=== PATIENT | female | born 1945 | race Caucasian/White ===

== ENCOUNTER 2020-02-10 07:58 | Outpatient (REF) | payer MEDICARE, OTHER, SELFPAY ==
--- NOTE | 2020-02-10 08:06 | MM_ITS ---
EXAMINATION: MM SCREENING DIGITAL BREAST TOMOSYNTHESIS, BILATERAL CLINICAL INFORMATION: Screening. Asymptomatic. The lifetime risk of breast cancer based on the Tyrer-Cuzick Model is 7%. COMPARISON: Mammography: 07/31/2018, 07/06/2017 TECHNIQUE: Digital breast tomosynthesis is performed in both the craniocaudal and mediolateral oblique views along with computer-aided detection (CAD). Synthesized 2D images are generated from the tomosynthesis. FINDINGS: There are scattered areas of fibroglandular density (ACR BI-RADS breast composition Category b). There are no significant masses, abnormal calcifications, or other abnormalities. The axilla and skin contours are unremarkable. MM/MM tomosynthesis screening BI IMPRESSION: No mammographic evidence of malignancy. ASSESSMENT: BI-RADS 1: Negative RECOMMENDATION: Routine annual mammography screening. This patient's information was entered into a reminder system with a target due date for their next mammogram.
== END 2020-02-10 07:59 | disposition home or self-care (01) ==
LOC: HO.MAMMO 07:58
PROVIDERS: PCP Physician Assistant; Visit Provider Physician Assistant
DX: Z12.31 Encounter for screening mammogram for malignant neoplasm of breast (principal)
CPT/HCPCS: 77063; 77067

== ENCOUNTER 2020-06-08 08:19 | Outpatient (REF) | payer MEDICARE, OTHER, SELFPAY ==
[2020-06-08 08:59] LABS: Hematocrit 41.7 % (37-47); Hemoglobin 13.9 g/dl (12.0-16.0); Mean Corpuscular HGB Conc 33.3 g/dl (31.0-35.0); Mean Corpuscular Hemoglobin 31.3 pg (27.0-33.0); Mean Corpuscular Volume 93.9 fL (80-98); Mean Platelet Volume 11.1 fL (9.4-12.3); Platelet Count 201 X10*3/uL (160-400); Red Blood Count 4.44 X10*6/uL (4.20-5.50); Red Cell Distribution Width 12.6 % (11.0-16.0); White Blood Count 2.9 X10*3/uL (4.8-10.8)
[2020-06-08 09:25] LABS: Alanine Aminotransferase 21 U/L (0-31); Albumin Level 4.3 g/dL (3.5-5.0); Alkaline Phosphatase 65 U/L (39-117); Anion Gap 12 (12-20); Aspartate Amino Transferase 26 U/L (5-31); Bilirubin Total 0.3 mg/dL (0.0-1.0); Blood Urea Nitrogen 7 mg/dL (9-16); Calcium 9.3 mg/dL (8.4-10.2); Carbon Dioxide 29 mmol/L (22-29); Chloride 107 mmol/L (96-108); Cholesterol 200 mg/dL; Estimated Glomerular Filt Rate > 60; Glucose Fasting 90 mg/dL (60-99); HDL Cholesterol 75 mg/dL; LDL Cholesterol Calculated 108 mg/dl; Potassium 4.9 mmol/L (3.3-5.1); Sodium 143 mmol/L (135-145); Total Protein 7.1 g/dL (6.5-8.0); Triglycerides 89 mg/dL
[2020-06-08 09:36] LABS: Glucose Urine UA NEG (NEG); Leukocyte Esterase Urine NEG (NEG); Nitrite Urine NEG (NEG); PH 6.5 (5.0-8.0); Urine Blood NEG (NEG); Urine Ketones NEG (NEG); Urine Protein 1+ MG/DL (NEG-TRACE)
[2020-06-08 09:41] LABS: Appearance Urine CLEAR; Color Urine YELLOW
[2020-06-08 09:46] LABS: TSH reflex Free T4 3.39 uIU/mL (0.32-4.0)
[2020-06-08 09:49] LABS: HBsAGNum1 0.16 S/CO (0.00-0.99); Hepatitis B Surface Antigen Negative (Negative)
[2020-06-08 09:53] LABS: HBS Num1 0.03 mIU/mL (0-7.99); HBc Num1 0.03 S/CO (0.00-0.79); Hepatitis B Core Antibody Nonreactive (Nonreactive); ~HepC Num1 0.07 S/CO (0.00-0.79); ~Hepatitis B Surface Antibody NONREACTIVE (Nonreactive); ~Hepatitis C Antibody Nonreactive (Nonreactive)
[2020-06-08 10:02] LABS: Bacteria Urine TRACE /LPF; Mucus Urine 1+ /LPF; RBC Urine 0-2 /HPF (0); Squamous Epithelial Cell Urine TRACE /LPF; WBC Urine 0-2 /HPF (0-4)
== END 2020-06-08 08:20 | disposition home or self-care (01) ==
LOC: HO.LAB 08:19
PROVIDERS: Visit Provider Physician Assistant
DX: Z11.3 Encounter for screening for infections with a predominantly sexual mode of transmission (principal); Z13.220 Encounter for screening for lipoid disorders; R42 Dizziness and giddiness; I10 Essential (primary) hypertension; R82.998 Other abnormal findings in urine; R30.0 Dysuria; E03.9 Hypothyroidism, unspecified
CPT/HCPCS: 36415; 80053; 80061; 81001; 84443; 85027; 86704; 86706; 86803; 87340

== ENCOUNTER 2021-03-10 07:25 | Outpatient (REF) | payer MEDICARE, OTHER, SELFPAY ==
--- NOTE | ~2021-03-10 | MM_ITS ---
EXAMINATION: MM SCREENING DIGITAL BREAST TOMOSYNTHESIS, BILATERAL CLINICAL INFORMATION: Screening. Asymptomatic. The lifetime risk of breast cancer based on the Tyrer-Cuzick Model is 6.2%. COMPARISON: Mammography: February 10, 2020 and studies dating back to January 20, 2014 TECHNIQUE: Digital breast tomosynthesis is performed in both the craniocaudal and mediolateral oblique views along with computer-aided detection (CAD). Synthesized 2D images are generated from the tomosynthesis. FINDINGS: There are scattered areas of fibroglandular density (ACR BI-RADS breast composition Category b). There are no significant masses, abnormal calcifications, or other abnormalities. MM/MM tomosynthesis screening BI IMPRESSION: There are no significant changes from prior study. ASSESSMENT: BI-RADS 1: Negative RECOMMENDATION: Routine annual mammography screening. This patient's information was entered into a reminder system with a target due date for their next mammogram.
== END 2021-03-10 07:26 | disposition home or self-care (01) ==
LOC: HO.MAMMO 07:25
PROVIDERS: PCP Physician Assistant; Visit Provider Physician Assistant
DX: Z12.31 Encounter for screening mammogram for malignant neoplasm of breast (principal)
CPT/HCPCS: 77063; 77067

== ENCOUNTER 2021-03-23 07:51 | Outpatient (REF) | payer MEDICARE, OTHER, SELFPAY ==
[2021-03-23 08:59] LABS: Hematocrit 42.7 % (37.0-47.0); Hemoglobin 14.1 g/dl (12.0-16.0); Mean Corpuscular Hemoglobin 31.1 pg (27.0-33.0); Mean Corpuscular Volume 94.1 fL (80.0-98.0); Mean Platelet Volume 11.6 fL (9.4-12.3); Platelet Count 189 X10*3/uL (160-400); Red Blood Count 4.54 X10*6/uL (4.20-5.50); Red Cell Distribution Width 12.3 % (11.0-16.0); White Blood Count 3.1 X10*3/uL (4.8-10.8)
[2021-03-23 09:07] LABS: Appearance Urine CLEAR; Color Urine YELLOW; Glucose Urine UA NEG (NEG); Leukocyte Esterase Urine TRACE (NEG); Nitrite Urine NEG (NEG); PH 6.5 (5.0-8.0); UACC Culture Trigger YES; Urine Blood NEG (NEG); Urine Ketones NEG (NEG); Urine Protein NEG (NEG-TRACE)
[2021-03-23 09:16] LABS: Bacteria Urine 1+ /LPF; RBC Urine 0-2 /HPF (0); Squamous Epithelial Cell Urine 1+ /LPF
[2021-03-23 09:17] LABS: Oval Fat Bodies Urine NOTED
[2021-03-23 09:40] LABS: Anion Gap 12 (12-20); Blood Urea Nitrogen 14 mg/dL (9-16); Calcium 9.8 mg/dL (8.4-10.2); Carbon Dioxide 27 mmol/L (22-29); Chloride 108 mmol/L (96-108); Estimated Glomerular Filt Rate > 60; Glucose Random 89 mg/dL (60-115); Potassium 5.3 mmol/L (3.3-5.1); Sodium 142 mmol/L (135-145)
== END 2021-03-23 07:52 | disposition home or self-care (01) ==
LOC: HO.LAB 07:51
PROVIDERS: PCP Physician Assistant; Visit Provider Physician Assistant
DX: R30.0 Dysuria (principal); R42 Dizziness and giddiness; R82.998 Other abnormal findings in urine; I10 Essential (primary) hypertension; E03.9 Hypothyroidism, unspecified; Z13.220 Encounter for screening for lipoid disorders; Z13.1 Encounter for screening for diabetes mellitus
CPT/HCPCS: 36415; 80048; 81001; 85027; 87086

== ENCOUNTER 2021-07-27 08:50 | Outpatient (REF) | payer MEDICARE, OTHER, SELFPAY ==
[2021-07-27 10:21] LABS: Alanine Aminotransferase 16 U/L (0-31); Albumin Level 4.2 g/dL (3.5-5.0); Alkaline Phosphatase 58 U/L (39-117); Anion Gap 14 (12-20); Aspartate Amino Transferase 22 U/L (5-31); Bilirubin Total 0.5 mg/dL (0.0-1.0); Blood Urea Nitrogen 15 mg/dL (9-16); Calcium 9.5 mg/dL (8.4-10.2); Carbon Dioxide 27 mmol/L (22-29); Chloride 105 mmol/L (96-108); Cholesterol 194 mg/dL; Estimated Glomerular Filt Rate > 60; Glucose Fasting 84 mg/dL (60-99); HDL Cholesterol 71 mg/dL; LDL Cholesterol Calculated 109 mg/dl; Potassium 4.5 mmol/L (3.3-5.1); Sodium 141 mmol/L (135-145); Total Protein 6.9 g/dL (6.5-8.0); Triglycerides 74 mg/dL
[2021-07-27 10:32] LABS: TSH reflex Free T4 1.78 uIU/mL (0.32-4.0)
== END 2021-07-27 08:51 | disposition home or self-care (01) ==
LOC: HO.LAB 08:50
PROVIDERS: PCP Physician Assistant; Visit Provider Physician Assistant
DX: E03.9 Hypothyroidism, unspecified (principal)
CPT/HCPCS: 36415; 80053; 80061; 84443

== ENCOUNTER 2021-08-31 08:48 | Outpatient (REF) | payer MEDICARE, OTHER, SELFPAY ==
--- NOTE | ~2021-08-31 | MM_ITS ---
EXAMINATION: BONE DENSITOMETRY CLINICAL INDICATION: Menopause. COMPARISON: None (current study represents initial baseline exam). TECHNIQUE: Using a [employer] DXA System (software version: 13.1) manufactured by [employer], dual-energy x-ray absorptiometry was performed of the lumbar spine and left hip. The images are of good technical quality. Summary results are attached. FINDINGS: AP SPINE L1-L4: BMD 1.024 g/cm2, Z-score 0.5, T-score -1.3, osteopenia. LEFT FEMUR, NECK: BMD 0.901 g/cm2, Z-score 0.9, T-score -1.0, normal. LEFT FEMUR, TOTAL: BMD 0.974 g/cm2, Z-score 1.4, T-score -0.3, normal. IDENTIFIED RISK FACTORS: Menopause, low calcium intake, hyperthyroid, family history (parent hip fracture), secondary osteoporosis. HISTORY OF FRACTURE: None listed. MEDICATIONS: Vitamin D. MM/XR DEXA axial skeleton IMPRESSION: 1. DIAGNOSIS: Osteopenia based on the lowest T-score value of -1.3 in the lumbar spine applying World Health Organization criteria. 2. 10-YEAR FRACTURE RISK PREDICTION, FRAX: Major osteoporotic fracture (clinical spine, forearm, hip or shoulder) 13.4%. Hip fracture 4.6%. 3. Treatment Recommendations: NOF guidelines recommend consideration for treatment in postmenopausal women and men age 50 and older presenting with the following: -A hip or vertebral (clinical or morphometric) fracture. -T-score less than or equal to -2.5 at the femoral neck or spine after appropriate evaluation to exclude secondary causes. -Low bone mass at the hip or spine and a 10-year fracture probability by FRAX of greater than or equal to 3% for hip fracture or greater than or equal to 20% for major osteoporotic fracture based on the [place] adapted WHO algorithm. 4. Other Recommendations: All treatment decisions require clinical judgment and consideration of individual patient factors, including patient preferences, comorbidities, previous drug use, risk factors not captured in the FRAX model (e.g. frailty, falls, vitamin D deficiency, increased bone turnover, interval significant decline in bone density) and possible under or overestimation of fracture risk by FRAX. Additional medical evaluation for secondary cause of low bone mineral density may be appropriate. FUTURE SCAN RECOMMENDATION: People with diagnosed cases of osteoporosis or at high risk for fracture should have regular bone mineral density tests. For patients eligible for Medicare, routine testing is allowed once every 2 years. The testing frequency can be increased to one year for patients who have rapidly progressing disease, those who are receiving or discontinuing medical therapy to restore bone mass, or have additional risk factors.
== END 2021-08-31 08:49 | disposition home or self-care (01) ==
LOC: HO.MAMMO 08:48
PROVIDERS: Visit Provider Physician Assistant
DX: Z13.820 Encounter for screening for osteoporosis (principal); Z78.0 Asymptomatic menopausal state
CPT/HCPCS: 77080

== ENCOUNTER 2022-02-08 13:15 | Outpatient (REF) | payer MEDICARE, OTHER, SELFPAY ==
--- NOTE | ~2022-02-08 | XR_ITS ---
EXAMINATION: XR KNEE, LEFT CLINICAL INFORMATION: Pain COMPARISON: None TECHNIQUE: Three views of the left knee. FINDINGS: Bones and soft tissues are normal. No fracture or joint effusion. Alignment is anatomic. Joint spaces are well maintained. No abnormal soft tissue calcification. XR/XR knee LT 3V IMPRESSION: Normal left knee.
== END 2022-02-08 13:16 | disposition home or self-care (01) ==
LOC: HO.XRAY 13:15
PROVIDERS: PCP Physician Assistant; Visit Provider Physician Assistant
DX: M25.562 Pain in left knee (principal)
CPT/HCPCS: 73562

== ENCOUNTER 2022-03-17 07:24 | Outpatient (REF) | payer MEDICARE, OTHER, SELFPAY ==
--- NOTE | ~2022-03-17 | MM_ITS ---
EXAMINATION: MM SCREENING DIGITAL BREAST TOMOSYNTHESIS, BILATERAL CLINICAL INFORMATION: Screening. Asymptomatic. The lifetime risk of breast cancer based on the Tyrer-Cuzick Model is 6.2%. COMPARISON: Mammography: March 10, 2021 and studies dating back to November 26, 2015 TECHNIQUE: Digital breast tomosynthesis is performed in both the craniocaudal and mediolateral oblique views along with computer-aided detection (CAD). Synthesized 2D images are generated from the tomosynthesis. FINDINGS: There are scattered areas of fibroglandular density (ACR BI-RADS breast composition Category b). There are no significant masses, abnormal calcifications, or other abnormalities. MM/MM tomosynthesis screening BI IMPRESSION: No significant changes from prior exam. ASSESSMENT: BI-RADS 1: Negative RECOMMENDATION: Routine annual mammography screening. This patient's information was entered into a reminder system with a target due date for their next mammogram.
== END 2022-03-17 07:25 | disposition home or self-care (01) ==
LOC: HO.MAMMO 07:24
PROVIDERS: PCP Physician Assistant; Visit Provider Physician Assistant
DX: Z12.31 Encounter for screening mammogram for malignant neoplasm of breast (principal)
CPT/HCPCS: 77063; 77067

== ENCOUNTER → 2023-03-21 08:30 | Outpatient (BNV) | payer MEDICARE, OTHER, SELFPAY | PROVIDERS: Visit Provider Radiology Diagnostic Radiology | DX: Z12.31 Encounter for screening mammogram for malignant neoplasm of breast (principal) | CPT/HCPCS: 77063; 77067 ==

== ENCOUNTER 2023-03-21 08:32 | Outpatient (REF) | payer MEDICARE, OTHER, SELFPAY ==
--- NOTE | ~2023-03-21 | MM_ITS ---
EXAMINATION: MM SCREENING DIGITAL BREAST TOMOSYNTHESIS, BILATERAL CLINICAL INFORMATION: Screening. Asymptomatic. COMPARISON: Mammography 03/17/2022, 03/10/2021, 02/10/2020, 07/31/2018, 07/06/2017, 06/14/2016, 11/26/2015, 04/03/2015, 01/20/2014. TECHNIQUE: Digital breast tomosynthesis is performed in both the craniocaudal and mediolateral oblique views along with computer-aided detection (CAD). Synthesized 2D images are generated from the tomosynthesis. FINDINGS: There are scattered areas of fibroglandular density (ACR BI-RADS breast composition Category b). There are no suspicious masses, suspicious grouped calcifications, or areas of architectural distortion in either breast. The parenchymal pattern is stable from prior exams. No skin or axillary abnormalities. MM/MM tomosynthesis screening BI IMPRESSION: No mammographic evidence of malignancy. ASSESSMENT: BI-RADS BI-RADS 1 - Negative RECOMMENDATION: Routine annual mammography screening. 1 year F/U This examination should not preclude the clinical evaluation of a suspicious palpable abnormality. This patient's information was entered into a reminder system with a target due date for their next mammogram.
== END 2023-03-21 08:33 | disposition home or self-care (01) ==
LOC: HO.MAMMO 08:32
PROVIDERS: Visit Provider Physician Assistant
DX: Z12.31 Encounter for screening mammogram for malignant neoplasm of breast (principal)
CPT/HCPCS: 77063; 77067

== ENCOUNTER 2023-11-27 08:20 | Outpatient (AMB) | payer MEDICARE, OTHER, SELFPAY ==
[2023-11-27 08:37] VITALS: BP 112/58; PULSE 64; O2SAT 96; BMI 21.1
--- NOTE | 2023-11-27 08:37 | MHC.PC.OV ---
Intake Visit Reasons: PE Allergies pollen extracts Allergy (Unknown, Verified 07/27/21 08:12) Unknown PFS Surgical History History of appendectomy History of endoscopy History of eye surgery History of lumbar surgery History of melanoma excision History of tonsillectomy Family History Father Prostate cancer Mother No problems noted. Sister Gallbladder cancer Social History (Updated 07/27/21 @ 13:32 by Kannan Lancaster PA-C) Alcohol intake: current Patient Tobacco Use Status: Never used Tobacco Current occupational status: retired Physical exam (Primary Care) Tobacco/Smoking Status: Tobacco use Status Patient Tobacco Use Status Never used Tobacco 11/17/23 11:10 Coding
--- NOTE | 2023-11-27 08:37 | AM.OFFVISMDC ---
Intake Vital Signs 11/27/23 08:37 Height 5 ft 8 in Weight 138 lb 9 oz BMI 21.1 BP 112/58 L Blood Pressure Location Lt brachial Position Sitting Pulse 64 Pulse Source Pulse Oximeter Pulse Oximetry (%) 96 Oxygen Delivery Method Room Air Intake Visit Reasons: PE Allergies pollen extracts Allergy (Unknown, Verified 11/27/23 08:44) Unknown Medication List - Last Reconciled 11/27/23 by Kannan Lancaster PA-C cevimeline 1 cap PO TID 90 days hydroxychloroquine 200 mg PO DAILY latanoprost 0.005% drps ophthalmic (eye) levothyroxine 100 mcg PO QAM 90 days scopolamine base 1 patch transdermal Q3D PRN HPI PE HPI Details Patient is a 78-year-old female here today for an annual wellness visit. Patient has a past medical history significant for hypothyroidism, GERD, autoimmune disease, h/o malignant melanoma. Surgeon syndrome/ sicca syndrome: Followed by Rheumatology in [place]. .. Hypothyroidism: Continues on levothyroxine 100 mcg daily. Has not had her TSH checked in quite awhile. We reviewed patient's [place] [facility] care Today we discussed her comprehensive care plan which was placed in the chart Colorectal cancer screening: Gets colonoscopy at [facility] in spring ( Dr mitchell) . Mammogram: Done in March of 2023, BI-RADS 1 Vaccines: Up-to-date with COVID vaccine, up-to-date with Tdap and pneumonia vaccine HPI Comments History of Present Illness Details reviewed past medical history- yes reviewed surgical / hospitalization history- yes reviewed current medications- yes reviewed family history- yes home safety throw rugs? grab bars? raised toilet seat? working smoke detectors? activities of daily living difficulty bathing or showering? difficulty dressing? difficulty using the toilet? difficulty getting in and out of bed? difficulty walking? receives help from other person's with any of the above tasks? instrumental activities of daily living uses telephone - gets to place out of walking distance- go shopping for groceries- repairs own meals- does own minor home maintenance- does own laundry- does own housework- manages own money- currently takes medication- end of life planning discussed advanced directives- yes advanced directives on file? discussed wishes expressed in advanced directives. fall risk have you had any falls with injuries in the past year? have you had 2 or more falls in the past year? fall risk assessment: [facility] Surgical History History of lumbar surgery History of eye surgery History of tonsillectomy History of endoscopy History of melanoma excision History of appendectomy Family History Father Prostate cancer Mother No problems noted. Sister Gallbladder cancer Social History (Updated 11/27/23 @ 08:51 by Kannan Lancaster PA-C) Alcohol intake: current Alcohol intake frequency: a few times a month Alcohol type: wine Patient Tobacco Use Status: Never used Tobacco Current occupational status: retired Questionnaire Medicare Wellness Checkup [age] What gender do you identify with?: female During the past 4 weeks, how much have you been bothered by emotional problems such as feeling anxious, depressed, irritable, sad or downhearted, and blue?: not at all During the past 4 weeks, has your physical & emotional health limited your social activities with family, friends, neighbors, or groups?: not at all During the past 4 weeks, how much bodily pain have you generally had?: no pain During the past 4 weeks, was someone available to help you if you needed & wanted help?: no, not at all During the past 4 weeks, what was the hardest physical activity you could do for at least 2 minutes?: very heavy Can you get to places out of walking distance without help? (For eg., can you travel alone on buses, taxis or drive your car?): Yes (6 miles a day) Can you go shopping for groceries or clothes without someone's help?: Yes Can you prepare your own meals?: Yes (of course) Because of any health problems, do you need the help of another person with your personal care needs such as eating, bathing, dressing or getting around the house?: No Can you handle your own money without help?: Yes During the past 4 weeks, how would you rate your health in general?: excellent (This is an insult!) During the past 4 weeks how have things been going for you?: very well; could hardly better (How does this effect your life?) Are you having difficulties driving your car?: no (Just drove home from house in [place].) Do you always fasten your seat belt when you are in a car?: yes, usually During past 4 weeks, have you been bothered by the following: never: Falling or dizzy when standing up, Sexual problems?, Trouble eating well?, Teeth or denture problems?, Problems using the telephone? and Tiredness or fatigue? Have you fallen 2 or more times in the past year?: No Are you afraid of falling?: No Are you a smoker?: no During the past 4 weeks, how many drinks of wine, beer, or other alcoholic beverages did you have?: 2-5 drinks per week Do you exercise for about 20 minutes 3 or more times a week?: yes, most of the time (Walk minimum of 6 miles daily do weight every other day.) Have you been given information to help with the following?: no: Hazards in your house that might hurt you? (Don't need help.) and no: Keeping track of your medications? (Don't need help.) How often do you have trouble taking medicines the way you have been told to take them?: I always take medicine as prescribed (NEVER) How confident are you that you can control & manage most of your health problems?: very confident What is your race?: White Mini Mental State Exam (MMSE) Orientation What is the (year) (season) (date) (day) (month)?: year Where are we (state) (county) (town or city) (hospital) (floor)?: town or city Attention & Calculation (CHOOSE ONE) Spell WORLD backwards (DLROW): 5 letters Score Score: 7 Activity of Daily Living Bathing - sponge bath, tub bath or shower: receives no assistance (gets in/out by self, if usual bathing means Dressing - getting clothes from closets & drawers, including inner/outer garments & fasteners.: gets clothes & gets completely dressed without help Toileting - going to the 'toilet room' for urine/bowel elimination & cleaning self/arranging clothes: goes to toilet room, cleans self, arranges clothes without help Transfer: moves in & out of bed and chair without help (may use support object) Continence: controls urination/bowel movements completely by self Feeding: feeds self without help Total Score: 0 Information obtained from: patient Using telephone: independent Traveling: independent Shopping: independent Preparing meals: independent Housework: independent Taking medicine: independent Managing money: independent PHQ-9 Over the last 2 weeks, how often have you been bothered by any of the following problems? 1. Little interest or pleasure in doing things: not at all 2. Feeling down, depressed, or hopeless: not at all 3. Trouble falling or staying asleep, or sleeping too much: not at all 4. Feeling tired or having little energy: not at all 5. Poor appetite or overeating: not at all 6. Feeling bad about yourself - or that you are a failure or have let yourself or your family down: not at all 7. Trouble concentrating on things, such as reading the newspaper or watching television: not at all 8. Moving or speaking so slowly that other people could have noticed. Or the opposite - being so fidgety or restless that you have been moving around a lot more than usual: not at all 9. Thoughts that you would be better off or of hurting yourself in some way: not at all Total score: 0 Depression Screening Interpretation: Negative Depression Screening Done: Yes 72271 - PHQ-9 Billing: Yes Source: Developed by Drs. Travis Vargas, Belen Azar, Berhane Grimes and colleagues, with an educational lisbeth from [employer]. Review of Systems Const Denies body aches, Denies chills, Denies excessive sweating, Denies fatigue, Denies fever(s) and Denies headache(s) Eyes Denies blurry vision ENT Denies dysphagia, Denies vertigo, Denies dizziness, Denies headache(s), Denies hearing loss and Denies tinnitus Card Denies chest pain, Denies chest pain with activity, Denies syncope, Denies irregular heart rhythm and Denies dyspnea Resp Denies chest congestion, Denies cough, Denies hemoptysis, Denies dyspnea and Denies wheezing GI Denies abdominal pain, Denies melena, Denies hematochezia, Denies coffee ground emesis, Denies dysphagia, Denies diarrhea, Denies nausea and Denies vomiting Denies urinary frequency, Denies dysuria, Denies urinary hesitancy and Denies urinary urgency Musc Denies arthralgias, Denies limited range of motion, Denies muscle cramps and Denies muscle weakness Skin/Breast Denies rash and Denies skin ulcer Neuro Denies Abnormal speech present, Denies confusion, Denies vertigo, Denies dizziness, Denies syncope, Denies headache(s), Denies memory loss and Denies seizure-like activity Psych Denies anxiety, Denies confusion, Denies depression, Denies memory loss, Denies panic attacks and Denies paranoia Endo Denies excessive sweating, Denies fatigue, Denies flushing, Denies polydipsia and Denies polyuria Aller/Immun Denies wheezing Physical Exam Vital Signs: Last Vital Signs Pulse 64 11/27/23 08:37 BP 112/58 L 11/27/23 08:37 Pulse Ox 96 11/27/23 08:37 Oxygen Delivery Method Room Air 11/27/23 08:37 BMI result Body Mass Index 21.1 Const General: cooperative, comfortable, no acute distress, alert and awake; No confusion Orientation/consciousness: oriented to person, oriented to place, patient oriented x3 and No confusion HEENT Other: hearing screening whisper test- Head: Yes normocephalic Ears: external ears normal and TM's normal bilaterally Face and sinus: No sinus tenderness Mouth: Normal oral and palatal mucosa present and tongue normal Teeth and gingiva: dentition normal and gingiva normal Throat: Yes posterior oropharynx normal, Yes tonsils normal and Yes uvula midline Eyes Other: vision screening- Conjunctivae: conjunctivae normal Sclerae: sclerae normal Pupils: Equal, round and reactive pupils present EOM: EOMs intact bilaterally Direct Ophthalmoscopy: No no photophobia Neck Neck: Yes no lymphadenopathy, No tender and Yes no JVD Thyroid: Thyroid normal Carotids: no bruits Chest Chest palpation & inspection: no tenderness Resp Effort & Inspection: normal respiratory effort, no audible wheezes, not labored and no stridor Auscultation: no crackles, no rales, no rhonchi and no wheezes Cardio Jugular venous distension: no JVD Rate: regular rate, not bradycardic and not tachycardic Rhythm: regular rhythm Bruits: no carotid bruits Peripheral pulses: Peripheral pulses 2+ throughout GI Inspection: Yes normal to inspection, No abdominal wall ecchymosis and No visible herniation Palpation (GI): Soft to palpation, nontender, no guarding, not rigid and No hepatosplenomegaly present Auscultation: normoactive bowel sounds Other: urinary incontinence? General: Yes no CVA tenderness Back/Spine/Pelvis Back: no CVA tenderness and No back tenderness Cervical Spine: cervical ROM normal Thoracic/Lumbar Spine: thoracic and lumbar spine normal to inspection, straight leg raise negative bilaterally, No thoraco-lumbar ROM limited and No lumbar spinal tenderness Skin Lesions: no lesions Rashes: no rashes Wounds: no wounds Neuro Other: balance Romberg- tandem walk test- walk-in turned test- rise from sit to stand- General: oriented to person, oriented to place, patient oriented x3, CN's II-XI intact bilaterally and No confusion Cranial nerves: Yes Equal, round and reactive pupils present and Yes Normal accommodation reflex present Cognition (Neuro): normal cognition Speech: No Abnormal speech present Gait exam (Neuro): Normal gait present Motor exam (neuro): 5/5 motor strength present throughout Extrem Right upper extremity: full ROM; no cyanosis Left upper extremity: full ROM; no cyanosis Right lower extremity: no edema Left lower extremity: no edema Psych Appearance: grossly normal Mental Status: mental status grossly normal Affect: normal affect Attitude: cooperative Thought process: Normal thought process present Assessment & Plan Assessment & Plan (1) Medicare annual wellness visit, subsequent: Code(s): Z00.00 - Encounter for general adult medical examination without abnormal findings (2) Sjogrens syndrome: Code(s): M35.00 - Sjogren syndrome, unspecified Qualifiers: Sjogren organ or system involvement: unspecified organ involvement Qualified Code(s): M35.00 - Sjogren syndrome, unspecified Plan: Followed by Rheumatology at [facility]. Continues on hydroxychloroquine Plan As per HPI Medications: Changed From hydroxychloroquine 200 mg PO DAILY 30 tabs 1RF M35.00 - Sjogren syndrome, unspecified To hydroxychloroquine 200 mg PO DAILY 90 days 90 tabs 1RF M35.00 - Sjogren syndrome, unspecified Refilled levothyroxine 100 mcg PO QAM 90 days 90 tabs 1RF E03.9 - Hypothyroidism, unspecified Quality Reporting (2019) Depression/Bipolar (159/160/161/177) PHQ-9: Total score: 0 Coding Level of Care Code Medicare Subsequent (G0439) Diagnoses Medicare annual wellness visit, subsequent Z00.00 Sjogren's syndrome, with unspecified organ involvement M35.00 Sjogren organ or system involvement: unspecified organ involvement CPT Codes Advance Care Planning - Time spent: 1-15 minutes, not on file ([id number]) Advance Care Planning Advance Care Planning discussion: Exists, not on file Date of discussion: 11/27/23 Forms completed: KAILASH Time spent: 1-15 minutes, not on file Actual minutes spent: 3
== END 2023-11-27 09:09 | disposition home or self-care (01) ==
PROVIDERS: Visit Provider Physician Assistant
DX: Z00.00 Encounter for general adult medical examination without abnormal findings (principal); M35.00 Sjogren syndrome, unspecified; E03.9 Hypothyroidism, unspecified
CPT/HCPCS: 1124F; G0439

== ENCOUNTER 2023-12-20 07:40 | Outpatient (REF) | payer MEDICARE, OTHER, SELFPAY ==
[2023-12-20 08:56] LABS: Hematocrit 41.3 % (37.0-47.0); Hemoglobin 13.7 g/dl (12.0-16.0); Mean Corpuscular HGB Conc 33.2 g/dl (31.0-35.0); Mean Corpuscular Hemoglobin 30.6 pg (27.0-33.0); Mean Corpuscular Volume 92.4 fL (80.0-98.0); Mean Platelet Volume 11.5 fL (9.4-12.3); Platelet Count 167 X10*3/uL (160-400); Red Blood Count 4.47 X10*6/uL (4.20-5.50); Red Cell Distribution Width 12.9 % (11.0-16.0); White Blood Count 3.8 X10*3/uL (4.8-10.8)
[2023-12-20 09:31] LABS: Alanine Aminotransferase 17 U/L (0-31); Albumin Level 4.1 g/dL (3.5-5.0); Alkaline Phosphatase 68 U/L (39-117); Anion Gap 14 (12-20); Aspartate Amino Transferase 21 U/L (5-31); Bilirubin Total 0.5 mg/dL (0.0-1.0); Blood Urea Nitrogen 16 mg/dL (9-16); Calcium 9.9 mg/dL (8.4-10.2); Carbon Dioxide 27 mmol/L (22-29); Chloride 106 mmol/L (96-108); Estimated Glomerular Filt Rate > 60; Glucose Fasting 90 mg/dL (60-99); Sodium 142 mmol/L (135-145); Total Protein 6.9 g/dL (6.5-8.0)
[2023-12-20 09:49] LABS: TSH reflex Free T4 0.72 uIU/mL (0.32-4.0)
== END 2023-12-20 07:41 | disposition home or self-care (01) ==
LOC: HO.LAB 07:40
PROVIDERS: PCP Physician Assistant; Visit Provider Physician Assistant
DX: Z13.1 Encounter for screening for diabetes mellitus (principal); K21.9 Gastro-esophageal reflux disease without esophagitis; E03.9 Hypothyroidism, unspecified
CPT/HCPCS: 36415; 80053; 84443; 85027

== ENCOUNTER 2024-06-20 09:42 | Outpatient (REF) | payer MEDICARE, OTHER, SELFPAY ==
--- NOTE | ~2024-06-20 | XR_ITS ---
CLINICAL HISTORY: M54.12 - Radiculopathy, cervical region 6 views cervical spine Comparison: None Findings: Normal vertebral body alignment. No acute fractures or dislocation. There are degenerative disc changes at C5-C6. There is multiple level degenerative facet and uncovertebral joint change. Iatrogenic findings with surgical hardware noted at C6-C7. Visualized neural foramina are patent. Prevertebral soft tissues within normal limits. IMPRESSION: No acute findings. This document has been electronically signed by: Tanner Reece MD on 06/22/2024 07:56:21
== END 2024-06-20 09:43 | disposition home or self-care (01) ==
LOC: HO.XRAY 09:42
PROVIDERS: PCP Physician Assistant; Visit Provider Physician Assistant
DX: M54.12 Radiculopathy, cervical region (principal); C43.72 Malignant melanoma of left lower limb, including hip; M35.00 Sjogren syndrome, unspecified; E03.9 Hypothyroidism, unspecified; Z79.899 Other long term (current) drug therapy
CPT/HCPCS: 72050; 96127; 99212

== ENCOUNTER 2024-06-20 09:42 | Outpatient (AMB) | payer MEDICARE, OTHER, SELFPAY ==
--- NOTE | 2024-06-20 09:45 | MHC.PC.OV ---
Vital Signs 06/20/24 09:51 Height 5 ft 8 in Weight 138 lb BMI 21.0 BP 140/70 H Blood Pressure Location Lt brachial Position Sitting Pulse 70 Pulse Source Pulse Oximeter Temp 97.1 F Temp Source Temporal Artery Scan Pulse Oximetry (%) 95 Oxygen Delivery Method Room Air Intake Visit Reasons: MRI of the neck per neurosurgeon. 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 HPI Details Patient is a 78-year-old female here today for a follow-up visit. Patient has a past medical history significant for hypothyroidism, GERD, autoimmune disease, h/o malignant melanoma. Cervical spine disc disease : Has a history of cervical spine disc surgery with Dr. max Patient reports chronic neck pain. 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 During the fall, she sustained an injury to her neck, resulting in limited mobility and discomfort. This incident led to pain radiating downwards from the neck, and upward pressures towards the head, but no loss of sensation or tingling in the arms has been reported. Her history includes a neck surgery four years prior with the placement of a titanium disc. She has been using xszd-gna-iddecic pain medication such as Tylenol and ibuprofen, despite the latter being contraindicated due to her stomach sensitivity. Her use of Flexerol was discontinued owing to interactions with her glaucoma treatment. Currently, the neck pain limits her participation in activities she once enjoyed such as golf, and her treatment has been hampered by her existing medical regimen. Surgeon syndrome/ sicca syndrome: Followed by Rheumatology in [place]. .. Hypothyroidism: Continues on levothyroxine 100 mcg daily. COUNT INCLUDES THE [facility] Surgical History History of lumbar surgery History of eye surgery History of tonsillectomy History of endoscopy History of melanoma excision History of appendectomy Family History Father Prostate cancer Mother No problems noted. Sister Gallbladder cancer Social History Alcohol intake: current Alcohol intake frequency: a few times a month Alcohol type: wine Patient Tobacco Use Status: Never used Tobacco Current occupational status: retired Questionnaire PHQ-9 Over the last 2 weeks, how often have you been bothered by any of the following problems? 1. Little interest or pleasure in doing things: not at all 2. Feeling down, depressed, or hopeless: not at all 3. Trouble falling or staying asleep, or sleeping too much: not at all 4. Feeling tired or having little energy: not at all 5. Poor appetite or overeating: not at all 6. Feeling bad about yourself - or that you are a failure or have let yourself or your family down: not at all 7. Trouble concentrating on things, such as reading the newspaper or watching television: not at all 8. Moving or speaking so slowly that other people could have noticed. Or the opposite - being so fidgety or restless that you have been moving around a lot more than usual: not at all 9. Thoughts that you would be better off or of hurting yourself in some way: not at all Total score: 0 Depression Screening Interpretation: Negative Depression Screening Done: Yes 15388 - PHQ-9 Billing: Yes Source: Developed by Drs. Travis Vargas, Belen Azar, Berhane Grimes and colleagues, with an educational lisbeth from [employer]. Thrive Questionnaire Date Thrive assessed: 06/20/24 I am a: Patient What is your living situation today?: I have a steady place to live Within the past 12 months, did the food you bought not last and you didn't have the money to get more?: Never true Within the past 12 months, did you worry whether your food would run out before you got money to buy more?: Never true Do you have trouble paying for medicines?: No Do you have trouble getting transportation to medical appointments?: No Do you have trouble paying your heating and electricity bill?: No Do you have trouble taking care of your child, family member or friend?: No Do you have trouble with day-to-day activities such as bathing, preparing meals, shopping, managing finances, etc.?: No Are you currently unemployed and looking for a job?: No Are you interested in more education?: No Please select the resources that you would like help with: None Currently or been in a relationship where the following occur: No concerns reported THRIVE Score: 0 AUDIT C Alcohol Use Questionnaire (AUDIT-C) 1. How often do you have a drink containing alcohol?: Never 3. How often do you have six or more drinks on one occasion?: Never Total Score: 0 BERE-7 AMB Questionnaire BERE-7 Date BERE - 7 assessed: 06/20/24 Feeling nervous, anxious, or on edge: 0 = Not at all Not being able to stop or control worryin = Not at all Worrying too much about different things: 0 = Not at all Trouble relaxin = Not at all Being so restless that it is hard to sit still: 0 = Not at all Becoming easily annoyed or irritable: 0 = Not at all Feeling afraid as if something awful might happen: 0 = Not at all Total BERE-7 score (0-4 normal; 5-9 mild; 10-14 moderate; 15-21 severe): 0 Source: Developed by Drs. Travis Vargas, Belen Azar, Berhane Grimes and colleagues, with an educational lisbeth from [employer]. BERE-7 Assessment Billing BERE-7 Assessment Tool: BERE-7 Assessment 69827 Review of Systems Const Denies headache(s) Eyes Denies loss of vision ENT Denies vertigo, Denies dizziness, Denies headache(s) and Denies sore throat Card Denies chest pain, Denies leg edema and Denies lightheadedness Resp Denies cough, Denies hemoptysis and Denies wheezing GI Denies abdominal pain, Denies melena, Denies constipation, Denies diarrhea and Denies vomiting Denies urinary frequency, Denies dysuria and Denies urinary urgency Musc Denies arthralgias, Denies joint swelling, Denies numbness and Denies tingling Neuro Denies Abnormal speech present, Denies behavioral changes, Denies vertigo, Denies dizziness, Denies headache(s), Denies loss of vision, Denies memory loss, Denies numbness and Denies tingling Psych Denies anxiety, Denies behavioral changes, Denies depression, Denies memory loss and Denies panic attacks Sergey/Lymph Denies easy bleeding and Denies easy bruising Aller/Immun Denies wheezing Physical exam (Primary Care) Vital Signs: Last Vital Signs Temp 97.1 F 06/20/24 09:51 Pulse 70 06/20/24 09:51 BP 140/70 H 06/20/24 09:51 Pulse Ox 95 06/20/24 09:51 Oxygen Delivery Method Room Air 06/20/24 09:51 BMI result Body Mass Index 21.0 Tobacco/Smoking Status: Tobacco use Status Patient Tobacco Use Status Never used Tobacco 06/20/24 09:46 PHQ-9: PHQ-9 Score PHQ-9: Total score 0 06/20/24 09:46 Depression Screening Interpretation: Negative Thrive Assessment: Date of Thrive Assessment Date Thrive assessed 06/20/24 06/20/24 09:48 Currently or been in a relationship where the following occur: No concerns reported Const General: healthy appearing, no acute distress, alert and awake Nutritional Appearance: well nourished Orientation/consciousness: oriented to person, oriented to place and oriented to time HENMT Ears: TM's normal bilaterally General nose exam: Normal nasal mucous membranes and turbinates present Eyes Conjunctivae: conjunctivae normal Sclerae: sclerae normal Pupils: Equal, round and reactive pupils present Neck Other: LIMITED ROTATIONAL RANGE OF MOTION OF THE CERVICAL SPINE. LIMITED cervical spine FLEXION AND EXTENSION NOTED ON PHYSICAL EXAM TODAY. Neck: Yes no lymphadenopathy and Yes no JVD Thyroid: Thyroid normal Carotids: no bruits Resp Effort & Inspection: normal respiratory effort and not tachypneic Auscultation: no crackles, no rales, no rhonchi and no wheezes Cardio Rate: regular rate Rhythm: regular rhythm Heart sounds: no murmurs and normal S1 and S2 GI Palpation (GI): Soft to palpation, nontender, no hepatomegaly and no splenomegaly Auscultation: normal bowel sounds Skin General skin exam: no rashes or lesions noted and dry skin Neuro General: oriented to person, oriented to place and oriented to time Cranial nerves: Yes Equal, round and reactive pupils present Speech: No Abnormal speech present Gait exam (Neuro): Normal gait present Motor exam (neuro): no tremor noted Extrem Right upper extremity: full ROM Left upper extremity: full ROM Right lower extremity: full ROM; no edema Left lower extremity: full ROM; no edema Psych Mental Status: mental status grossly normal Speech and movement: Normal speech and movement present Affect: normal affect Attitude: cooperative Thought process: Normal thought process present Coding Level of Care Code Est Pt Level 4 (86742) Diagnoses Radiculopathy of cervical spine M54.12 Malignant melanoma of left lower extremity including hip C43.72 Melanoma location: lower extremity including hip Laterality: left Sjogren's syndrome, with unspecified organ involvement M35.00 Sjogren organ or system involvement: unspecified organ involvement Hypothyroidism, unspecified type E03.9 Hypothyroidism type: unspecified Additional Codes BERE-7 Assessment Billing - BERE-7 Assessment Tool: BERE-7 Assessment 58426 ([id number]) PHQ-9 - 44258 - PHQ-9 Billing: Yes ([id number]) Assessment & Plan Assessment & Plan (1) Radiculopathy of cervical spine: Code(s): M54.12 - Radiculopathy, cervical region Category: Medical Plan: The patient will undergo x-ray imaging for initial evaluation, assess the need for MRI, and consider starting physical therapy. Pain management options and alternative pain management strategies to be tailored based on the imaging results. (2) Malignant melanoma: Code(s): C43.9 - Malignant melanoma of skin, unspecified Category: Medical Qualifiers: Melanoma location: lower extremity including hip Laterality: left Qualified Code(s): C43.72 - Malignant melanoma of left lower limb, including hip Plan: Patient continues to follow a granite worker and plastic surgeon whom she has undergone Mohs procedures with. (3) Sjogrens syndrome: Code(s): M35.00 - Sjogren syndrome, unspecified Category: Medical Qualifiers: Sjogren organ or system involvement: unspecified organ involvement Qualified Code(s): M35.00 - Sjogren syndrome, unspecified Plan: Continues to see a auxiliary equipment operator at [facility]. Continues on hydroxychloroquine (4) Hypothyroidism: Code(s): E03.9 - Hypothyroidism, unspecified Category: Medical Qualifiers: Hypothyroidism type: unspecified Qualified Code(s): E03.9 - Hypothyroidism, unspecified Plan: Most recent TSH testing showing good control over thyroid. She continues on levothyroxine 100 mcg daily. Orders: Orders MR cervical spine wo con Today M54.12 - Radiculopathy, cervical region Comprehensive [place]. Panel Fast Today Z13.1 - Encounter for screening for diabetes mellitus Complete Blood Count no Diff Today Z13.1 - Encounter for screening for diabetes mellitus XR cervical spine 4V Today M54.12 - Radiculopathy, cervical region PT Evaluation and Treatment Today M54.12 - Radiculopathy, cervical region TSH reflex Free T4 Today E03.9 - Hypothyroidism, unspecified Medications: Refilled levothyroxine 100 mcg PO QAM 90 days 90 tabs 1RF E03.9 - Hypothyroidism, unspecified
[2024-06-20 09:51] VITALS: BP 140/70; PULSE 70; TEMP 36.2; O2SAT 95; BMI 21.0
--- OUTSIDE RECORDS SUMMARY | 2024-06-20 10:12 | XMS_ITS | Patient Health Record ---
Author Organization [facility] Address [address] [place] [address] Support Name Relationship Address Phone CHETAN ROBBINS Guarantor Unknown Reason For Referral No Information Plan Of Treatment No Information Insurance Providers Payer Name Payer Address Payer Phone Subscriber Number Group Number Insured Name Patient Relationship to Insured Coverage Start Date Coverage End Date [employer] of [place] - J [address] [place] [id number] CHETAN SAAVEDRA Self - patient is the insured
== END 2024-06-20 10:24 | disposition home or self-care (01) ==
LOC: HO.HMCH 09:42
PROVIDERS: PCP Physician Assistant; Visit Provider Physician Assistant
DX: M54.12 Radiculopathy, cervical region (principal); C43.72 Malignant melanoma of left lower limb, including hip; M35.00 Sjogren syndrome, unspecified; E03.9 Hypothyroidism, unspecified

== ENCOUNTER → 2024-06-20 10:37 | Outpatient (BNV) | payer MEDICARE, OTHER, SELFPAY | PROVIDERS: PCP Physician Assistant; Visit Provider Specialist | DX: M54.12 Radiculopathy, cervical region (principal) | CPT/HCPCS: 72052 ==

== ENCOUNTER → 2024-06-26 19:46 | Outpatient (BNV) | payer MEDICARE, OTHER, SELFPAY | PROVIDERS: PCP Physician Assistant; Visit Provider Radiology Diagnostic Radiology | DX: M47.812 Spondylosis without myelopathy or radiculopathy, cervical region (principal); M99.61 Osseous and subluxation stenosis of intervertebral foramina of cervical region | CPT/HCPCS: 72141 ==

== ENCOUNTER 2024-06-26 19:50 | Outpatient (REF) | payer MEDICARE, OTHER, SELFPAY ==
--- NOTE | ~2024-06-26 | MR_ITS ---
EXAMINATION: MR CERVICAL SPINE WITHOUT CONTRAST CLINICAL INFORMATION: Radiculopathy, cervical region. COMPARISON: August 28, 2018. TECHNIQUE: MRI of the cervical spine was obtained using routine sequences without contrast. FINDINGS: Paramagnetic field distortion secondary to hardware at C6-7. Craniocervical junction is intact with a periodontal pannus formation resulting in ventral deformity of the thecal sac. No bone marrow STIR signal abnormality. Grade 1 anterolisthesis C5-6. The cervical spinal cord signal is normal. Central disc protrusion T3-T4 without cord compression. C2-3: No disc herniation. No neuroforamina stenosis. C3-4: Left-sided disc osteophyte complex formation. Left facet joint hypertrophy resulting in left neuroforamina narrowing. No cord compression. C4-5: No disc herniation. No neuroforamina stenosis. No cord compression. C5-6: Grade 1 anterolisthesis. Reduced AP diameter of the thecal sac and ventral deformity of the thecal sac. No cord compression. Left neuroforamina narrowing on a degenerative basis. C6-7: Post surgical changes. No cord compression. Bilateral neuroforamina narrowing on a degenerative basis. C7-T1: Bilateral perineural cysts. No central spinal canal or neuroforamina stenosis. No prevertebral compartment hematoma, mass or fluid collection. Flow-void signal within the main vessels is normal. Left vertebral artery slightly dominant. Focal subtle hyperintense T2 signal in the wyatt. MR/MR cervical spine wo con IMPRESSION: Multilevel cervical spondylosis C3-4 and C5-6 resulting in left-sided neuroforamina narrowing. Grade 1 anterolisthesis C5-6. No cord compression, cord edema and or myelopathy. Questionable old lacunar infarcts, wyatt. Electronically signed by: Lee Rae MD 06/27/2024 08:06 AM EDT
--- OUTSIDE RECORDS SUMMARY | 2024-06-26 19:56 | XMS_ITS | Patient Health Record ---
Author Organization [facility] Address [address] [place] [address] Support Name Relationship Address Phone CHETAN ROBBINS Guarantor Unknown Reason For Referral No Information Plan Of Treatment No Information Insurance Providers Payer Name Payer Address Payer Phone Subscriber Number Group Number Insured Name Patient Relationship to Insured Coverage Start Date Coverage End Date [employer] of [place] - J [address] [place] [id number] CHETAN SAAVEDRA Self - patient is the insured
--- OUTSIDE RECORDS SUMMARY | 2024-06-26 19:56 | XMS_ITS | Data Portability ---
Author Organization [facility] Tevin GALEANA_Vianey_ Address [address] [place] [address] Assessment No assessment recorded. Plan of Treatment Reminders Order Date Submit Date Provider Last Modified By Organization Details Last Modified Time Details Appointments None recorded. Lab None recorded. Referral None recorded. Procedures pulse oximetry (PROC) 2015 016 In-Office Order, Internal Use Only DO Not Attach Compendium DO Not Attach Compendium, Do Not Delete/merge, [id number] 04:04:07 pulse oximetry (PROC) 2014 015 [email or web address] In-Office Order, Internal Use Only DO Not Attach Compendium DO Not Attach Compendium, Do Not Delete/merge, [id number] 14:19:10 Surgeries None recorded. Imaging None recorded. Medication Orders prednisone 5 mg tablets in a dose pack 2014 015 ranjeet Remitly [facility] #[id number], [address], [place], [address], 6 18:52:05 ProAir HFA 90 mcg/actuati on aerosol inhaler 2014 015 [email or web address] [facility] #[id number], [address], [place], [address], 5 14:19:10 Levaquin 500 mg tablet 2014 015 ranjeet n3 [facility] #[id number], [address], [place], [address], 6 18:52:02 Patient Targets Encounter Date Encounter Id Patient Goals Patient Target Last Modified By Organization Details Last Modified Time 09/19/2014 [id number] BMI 25 Not available Not available Not available Blood Pressure 130 / 90 Not available Not available Not available Patient Instructions Encounter Date Encounter Id Patient Instructions Last Modified By Organization Details Last Modified Time 09/19/2014 [id number] Pt. here for acu te visit and minimal preventative care measures addressed at this time.? ? ? RTC or go to ER for any new or worsening symptoms i.e. chest pains, coughing up blood, shortness of breath, malaise, worsening fever, or any other new/concerning symptom. Not available 09/19/2014 14:19:10 All pt. question s and concerns were addressed and answered. Pt.? ? ? verbalized understanding and agreement of treatment plan. Not available 09/19/2014 14:19:10 09/24/2015 [id number] Keep wound dry f or 48 hours. Wound care as discussed, return wiith any concerns. Not available 09/24/2015 19:12:00 UC visit, QM not done. Not available 09/24/2015 19:12:08 Reason for Referral None Reported. Results Created Date Observation Date Name Description Value Unit Range Abnormal Flag Note LastModifiedBy Organization Detail LastModifiedTime 09/24/19 16 09/24/2015 pulse oxime try (PROC ) pulse oximetry 98% room air Not Available In-Office Order Internal Use Only DO Not Attach Compendium DO Not Attach Compendium, Do Not Delete/merge, [id number] 09/24/2015 18:52:41 09/20/19 15 09/19/2014 pulse oxime try (PROC ) pulse oximetry 95% ROOM AIR Not Available In-Office Order Internal Use Only DO Not Attach Compendium DO Not Attach Compendium, Do Not Delete/merge, [id number] 09/19/2014 11:11:37 Result Notes None recorded. Problems Name Problem SNOMED Code Status Onset Date Resolution Date Notes Provider Name and Address Organization Details Recorded Time Acute bronchitis 94894083 Active Bassam fatima [facility] 5 14:19:09 Aortic valve disorder 1300938 Active Not Available [facility] 3 03:05:39 Shoulder joint pain 123190864 Active Not Available [facility] 3 03:05:39 Problem Notes None recorded. Procedures Surgical History Date Name Laterality Status Provider Name and Address Organization Details Recorded Time 6 Laceration Repair completed Gallo Mancia [place] - [facility] 09/24/2015 19:11:28 5 Most Recent Mammogram completed Halima Breen [facility] 09/19/2014 11:04:23 3 Date of Last Pap Smear completed Halima Breen [facility] 09/19/2014 11:04:23 Imaging Results None recorded. Procedure Notes None recorded. Medical Equipment None Reported. Allergies No known drug allergies Medications Name Sig Start Date Stop Date Status Note LastModified by Organization Details LastModified Time Prescriptio n - New active Not Available Not Available Not Available carisoprodo l 350 mg tablet active Not Available Not Available Not Available dicloxacill in 500 mg capsule active Not Available Not Available Not Available doxycycline hyclate 100 mg capsule active Not Available Not Available N ot Available azithromyci n 250 mg tablet active Not Available Not Available Not Available ranitidine 300 mg tablet active Not Available Not Available Not Available prednisone 20 mg tablet active Not Available Not Available Not Available fluorouraci l 5 % topical cream active Not Available Not Available Not Available methylpredn isolone 4 mg tablet active Not Available Not Available No t Available Nexium 40 mg capsule,del ayed release active Not Available Not Available Not Available valacyclovi r 500 mg tablet active Not Available Not Available Not Available omeprazole 40 mg capsule,del ayed release active Not Available Not Available Not Available tramadol 50 mg tablet active Not Available Not Available No t Available levothyroxi ne 100 mcg tablet active Not Available Not Available Not Available lidocaine 5 % topical patch active Not Available Not Available Not Available Levaquin 500 mg tablet Take 1 tablet(s) EVERY 24 HOURS by oral route x 7 days. 09/23 completed Not Available Not Available Not Available prednisone 5 mg tablets in a dose pack dose pack as directed x 6 days. 09/23 completed Not Available Not Available Not Available Carac 0.5 % topical cream active Not Available Not Available Not Available Premarin 0.625 mg/gram vaginal cream active Not Available Not Available Not Available ProAir HFA 90 mcg/actuati on aerosol inhaler Inhale 2 puff(s) every 4 hours by inhalatio n route. 2014 active Not Available Not Available Not Avbessie velasquez MoviPrep 100 gram-7.5 gram-2.691 gram oral powder packet active Not Available Not Available Not Available Vitals Date Recorded Body height Body weight Heart rate Body temperature Body mass index (BMI) Oxygen saturation Oxygen saturation in Arterial blood by Pulse oximetry Respiratory rate Systolic blood pressure Diastolic blood pressure Provider Name and Address Organization Details Last Updated DateTime 5 165.1 cm 68308.4 8602 g 71 /min 97.9 [degF] 24.3 kg/m2 95 % 95 % 18 /min 117 mm[Hg] 73 mm[Hg] Halima Breen [facility] 5 11:11:37 Date Recorded Body height Body weight Body mass index (BMI) Heart rate Body temperature Oxygen saturation Oxygen saturation in Arterial blood by Pulse oximetry Respiratory rate Systolic blood pressure Diastolic blood pressure Provider Name and Address Organization Details Last Updated DateTime 6 171.45 cm 50169.3 4 g 21.4 kg/m2 96 /min 96.2 [degF] 98 % 98 % 16 /min 140 mm[Hg] 74 mm[Hg] Louise Sebastian [facility] 6 18:51:46 Social History Question Answer Notes LastModified by Organizat ion Details LastModified Time Tobacco Smoking Status Never Smoker Halima Breen [facility] 09/19/2014 11:04:23 What Is Your Level Of Alcohol Consumption? Moderate Information not available 09/19/2014 What Is Your Level Of Caffeine Consumption? None Information not available 09/19/2014 How Much Tobacco Do You Chew? None Information not available 09/19/2014 What Type Of Diet Are You Following? REGULAR Information not available 09/19/2014 Which Illicit Or Recreational Drugs Have You Used? NONE Information not available 09/19/2014 Have You Directly Handled Bats, Rodents, Or Primates From Ebola Endemic Areas? No Information not available 09/19/2014 Have You Had Contact With Blood, Bodily Fluids, Or Human Remains Of A Patient Known To Have Or Suspected To Have Ebola Virus Disease? No [email or web address] Information not available 09/19/2014 Do You Reside In Or Have You Traveled To An Area Where Ebola Virus Transmission Is Active? No Information not available 09/19/2014 Education Post Graduate Information not available 09/19/2014 What Is Your Occupation? RETIRED Information not available 09/19/2014 Live Alone Or With Others? With Others Information not available 09/19/2014 Marital Status Informatio n not available 09/19/2014 Work Related Injury? No [email or web address] Information not available 09/19/2014 Sex: Unknown Functional Status Question Answer Note LastModified by Organization D etails LastModified Time What is your exercise level? Moderate Information not available 09/19/2014 Mental Status None recorded. Family History Nothing Reported. Medical History Condition Response Coronary Artery Disease N Gout N Kidney Stones N Hyperthyroidism Y Depression N COPD N Hypothyroidism N Developmental or Behavioral Disorders N Eczema, Hives or other skin conditions N Anxiety Disorder N Muscle, Joint, or Bone Problems N Vision or Eye Problems N Arthritis Y Congenital Anomalies N Cancer Y Stroke N Bladder or Kidney Problems N High Cholesterol N Liver Disease N Fibromyalgia N Kidney Disease N Ear or Hearing Problems N ADD or ADHD N Thyroid Problems N Skin Problems N Anemia N Constipation N Diabetes N Seizures/Epilepsy N Tuberculosis N Diverticulitis N Asthma N Allergies N GERD/Reflux Y Heart Disease N Pulmonary Embolism N Hypertension N Osteoporosis N Gynecological History Statement/Question Response Date of Last Pap Smear 09/17/2012 Most Recent Mammogram 05/18/2014 Obstetrics History GPAL:G 0 P 0 0 0 0 Past Encounters Encounter ID Performer Location Encounter Start Date Encounter Closed Date Diagnosis/Indication Diagnosis SNOMED-CT Code Diagnosis ICD10 Code Diagnosis Note [id number] [facility] [place] [address] [address] 08/08/2011 08:21:04 08/08/2011 09:24:28 [id number] [facility] [place] [address] [address] 09/19/2014 09:58:21 09/19/2014 18:14:26 Acute bronchitis [id number] Gallo Gavino [facility] [address] [place] [address] 09/24/2015 18:45:27 09/24/2015 19:09:46 Laceration of thumb 161732402 S61.012A Health Concerns Section Related Observation LastModified by Organization Detai ls LastModified Time None Recorded Concern Status LastModified by Organization Details LastModified Time None Recorded Advance Directives Directive None Recorded Payers Encounter Date Sequence Insurance Name Policy Number Policy Powell Covered Member ID Powell Member ID Guarantor Name 08/08/2011 1 [place] [id number] [place] [id number] [facility] 09/19/2014 2 [employer] - [place] - MEDICARE EXTENSION (INDEMNITY) [id number] [place] [id number] [address] [facility] 09/19/2014 1 [place] [id number] [address] [facility] 09/24/2015 2 [employer] - [place] - MEDICARE EXTENSION (INDEMNITY) [id number] [place] [id number] [facility] 09/24/2015 1 [place] [id number] [facility] Notes Date Note Type Note Provider Name and Address Organization Details Recorded Time 09/24/2015 text/html Hand/FingersRep orted bypatient.Locat ion:left; anterior; superficial; 1st digit Duration:1 days; 30 minutes ago Context:lacerat ionNotes:Pt states she cut her left thumb with a kitchen knife. Gallo fatima, [place] - [facility] 09/24/2015 19:12:15 OBGyn Episode No OBEpisode recorded.
== END 2024-06-26 19:51 | disposition home or self-care (01) ==
LOC: HO.MRI 19:50
PROVIDERS: PCP Physician Assistant; Visit Provider Physician Assistant
DX: M54.12 Radiculopathy, cervical region (principal)
CPT/HCPCS: 72141

== ENCOUNTER 2024-09-03 11:16 | Outpatient (REF) | payer MEDICARE, OTHER, SELFPAY ==
--- NOTE | ~2024-09-03 | XR_ITS ---
EXAMINATION: XR LUMBOSACRAL SPINE CLINICAL INFORMATION: M54.50 - Low back pain, unspecified COMPARISON: August 16, 2017 TECHNIQUE: Three views of the lumbosacral spine. FINDINGS: There are 5 nonrib-bearing lumbar segments. There is convex right curvature of the lumbar spine. L1 demonstrates flattening with moderate loss of height from the superior endplate. L2 demonstrate superior endplate concavity with mild to moderate loss of vertebral body height. Vertebral body height is otherwise maintained. L3-4: There is stable mild grade 1 anterolisthesis. L4-5: There is stable mild disc space narrowing and disc calcification. L5-S1: There is mild degenerative disc calcification. XR/XR lumbar spine 2-3V IMPRESSION: Superior endplate compression fractures of L1 and L2 with moderate loss of height at L1 and [id number] loss of height at L2. Acute versus chronic, correlate clinically. Electronically signed by: Johny Moura MD 09/03/2024 12:09 PM EDT
--- NOTE | ~2024-09-03 | CT_ITS ---
EXAMINATION: CT HEAD WITHOUT CONTRAST CLINICAL INFORMATION: Recent fall with head and neck injury COMPARISON: None available. TECHNIQUE: Contiguous axial imaging was performed from the skull base to vertex without intravenous administration of contrast. This CT examination was performed using dose optimization techniques as appropriate, variously including the following: *Automated exposure control *Adjustment of mA and/or kV according to patient size (this includes techniques or standardized protocols for targeted exams where dose is matched to indication/reason for exam; i.e. extremities or head) *Use of iterative reconstruction technique DLP: 746 mGY*cm FINDINGS: There is no acute ischemic change. There is chronic periventricular and deep white matter hypodensity likely related to small vessel disease. There is no intracranial hemorrhage. There is focal calcification involving the pineal gland and habenula. There is also cord plexus calcification in the lateral ventricles. There is no mass-effect or midline shift. There is mild generalized atrophy. Basal cisterns and ventricles are within normal limits for age/cerebral volume. Orbits are symmetrical and unremarkable. Paranasal sinuses and mastoid air cells are pneumatized. There are no bony abnormalities. CT/CT head/brain wo IV con IMPRESSION: No acute intracranial abnormality. Electronically signed by: Johny Moura MD 09/03/2024 12:03 PM EDT
--- OUTSIDE RECORDS SUMMARY | 2024-09-03 12:55 | XMS_ITS | Patient Health Record ---
Author Organization [facility] Address [address] [place] [address] Support Name Relationship Address Phone CHETAN ROBBINS Guarantor Unknown Reason For Referral No Information Plan Of Treatment No Information Insurance Providers Payer Name Payer Address Payer Phone Subscriber Number Group Number Insured Name Patient Relationship to Insured Coverage Start Date Coverage End Date [employer] of [place] - J [address] [place] [id number] CHETAN SAAVEDRA Self - patient is the insured
== END 2024-09-03 11:17 | disposition home or self-care (01) ==
LOC: HO.XRAY 11:16
PROVIDERS: PCP Physician Assistant; Visit Provider Physician Assistant
DX: M54.50 Low back pain, unspecified (principal); S19.9XXA Unspecified injury of neck, initial encounter; S09.93XA Unspecified injury of face, initial encounter; S09.90XA Unspecified injury of head, initial encounter
CPT/HCPCS: 70450; 72100

== ENCOUNTER → 2024-09-03 11:20 | Outpatient (BNV) | payer MEDICARE, OTHER, SELFPAY | PROVIDERS: PCP Physician Assistant; Visit Provider Radiology Diagnostic Radiology | DX: R90.82 White matter disease, unspecified (principal); M51.360 Other intervertebral disc degeneration, lumbar region with discogenic back pain only | CPT/HCPCS: 70450; 72100 ==

== ENCOUNTER 2024-11-19 15:17 | Outpatient (AMB) | payer MEDICARE, OTHER, SELFPAY ==
--- NOTE | 2024-11-19 15:19 | A.OFFPC_ITS ---
Vital Signs 11/19/24 15:24 Height 5 ft 8 in Weight 144 lb 8 oz BMI 22.0 BP 128/64 Blood Pressure Location Lt brachial Position Sitting Respiration 12 Pulse 75 Pulse Source Pulse Oximeter Temp 97.7 F Temp Source Oral Pulse Oximetry (%) 99 Oxygen Delivery Method Room Air Intake Visit Reasons: JAYNE LancasterKannan Intake Note: New patient visit Molecular Biology Scientist Required: No Allergies pollen extracts Allergy (Unknown, Verified 11/19/24 15:19) Unknown Tobacco use date assessed: 11/19/24 Fall risk assessment: 1 Fall in past year Last assessed Fall Risk: 11/19/24 HPI HPI Comments History of Present Illness Details Patient is a 79 year old female with a past medicall history significant for hypothyroidism, GERD, autoimmune disease, h/o malignant melanoma, cervical ddd presenting for follow up. Transferring from [facility] Cervical spine disc disease: Has a history of cervical spine disc surgery with Dr. Dave fuchs 2, one recently in August 2024. Fell in August-imaging with lumbar compression fracutures. Awaiting pain management consult at [facility]-[place] seek referral there Sjogndrome/ sicca syndrome: Was following with Rheumatology in [place] but no longer needs to see them Skin cancer: multiple. Follows with [facility] & [place] for dermatology, oncology Hypothyroidism: Continues on levothyroxine 100 mcg daily. OA: [facility] orthopedic minor hill-knee hip. Declines further mammogram Declines further colonoscopy ROS CONSTITUTIONAL: Denies weight loss, fever and chills. HEENT: Denies changes in vision and hearing. RESPIRATORY: Denies SOB and cough. CV: Denies palpitations and CP GI: Denies abdominal pain, nausea, vomiting and diarrhea. : Denies dysuria and urinary frequency. MSK: Denies new myalgia and joint pain. SKIN: Denies rash and pruritus. NEUROLOGICAL: Denies headache PSYCHIATRIC: Denies recent changes in mood. PHYSICAL EXAM: GENERAL: Alert and oriented x 3. NAD EYES: EOMI. Anicteric. HENT: Moist mucous membranes. No scleral icterus. No cervical lymphadenopathy. LUNGS: Clear to auscultation bilaterally. CARDIOVASCULAR: Regular rate and rhythm. No murmur. No JVD. ABDOMEN: Soft, non-tender +bs EXTREMITIES: No edema. Non-tender. SKIN: No rashes or lesions. Warm. NEUROLOGIC: No focal neurological deficits. CN II-XII grossly intact PSYCHIATRIC: Cooperative. Appropriate mood and affect [facility] Surgical History History of lumbar surgery History of eye surgery History of tonsillectomy History of endoscopy History of melanoma excision History of appendectomy Family History (Updated 11/19/24 @ 15:23 by Tatyana Sandoval CMA) Father Prostate cancer Mother No problems noted. Sister Gallbladder cancer Social History Housing: House Alcohol intake: current Alcohol intake frequency: a few times a month Alcohol type: wine Patient Tobacco Use Status: Former Tobacco user Cigarettes Per Day: 1 Years Smoked: 5 e-Cigarette/Vaping Use: Never Used service: No Current occupational status: retired Current occupation: retired teacher Cognitive needs: No Hearing needs: Yes (bilateral hearing aids) Vision needs: Yes (glasses) Questionnaire PHQ-9 Over the last 2 weeks, how often have you been bothered by any of the following problems? 1. Little interest or pleasure in doing things: not at all 2. Feeling down, depressed, or hopeless: not at all 3. Trouble falling or staying asleep, or sleeping too much: not at all 4. Feeling tired or having little energy: not at all 5. Poor appetite or overeating: not at all 6. Feeling bad about yourself - or that you are a failure or have let yourself or your family down: not at all 7. Trouble concentrating on things, such as reading the newspaper or watching television: not at all 8. Moving or speaking so slowly that other people could have noticed. Or the opposite - being so fidgety or restless that you have been moving around a lot more than usual: not at all 9. Thoughts that you would be better off or of hurting yourself in some way: not at all Total score: 0 Depression Screening Interpretation: Negative Depression Screening Done: Yes 46872 - PHQ-9 Billing: Yes Source: Developed by Drs. Travis Vargas, Belen Azar, Berhane Grimes and colleagues, with an educational lisbeth from [employer]. Thrive Questionnaire Date Thrive assessed: 08/26/25 I am a: Patient What is your living situation today?: I choose not to answer this question Within the past 12 months, did the food you bought not last and you didn't have the money to get more?: I choose not to answer this question Within the past 12 months, did you worry whether your food would run out before you got money to buy more?: I choose not to answer this question Do you have trouble paying for medicines?: I choose not to answer this question Do you have trouble getting transportation to medical appointments?: I choose not to answer this question Do you have trouble paying your heating and electricity bill?: I choose not to answer this question Do you have trouble taking care of your child, family member or friend?: I choose not to answer this question Do you have trouble with day-to-day activities such as bathing, preparing meals, shopping, managing finances, etc.?: I choose not to answer this question Are you currently unemployed and looking for a job?: I choose not to answer this question Are you interested in more education?: I choose not to answer this question Please select the resources that you would like help with: None Currently or been in a relationship where the following occur: I choose not to answer THRIVE Score: 0 AUDIT C Alcohol Use Questionnaire (AUDIT-C) 1. How often do you have a drink containing alcohol?: 2-4 times a month 2. How many drinks containing alcohol do you have on a typical day when you are drinking?: 1 or 2 3. How often do you have six or more drinks on one occasion?: Never Total Score: 2 BERE-7 AMB Questionnaire BERE-7 Date BERE - 7 assessed: 06/20/24 Feeling nervous, anxious, or on edge: 0 = Not at all Not being able to stop or control worryin = Not at all Worrying too much about different things: 0 = Not at all Trouble relaxin = Not at all Being so restless that it is hard to sit still: 0 = Not at all Becoming easily annoyed or irritable: 0 = Not at all Feeling afraid as if something awful might happen: 0 = Not at all Total BERE-7 score (0-4 normal; 5-9 mild; 10-14 moderate; 15-21 severe): 0 Source: Developed by Belen Alarcon, Berhane Grimes and colleagues, with an educational lisbeth from [employer]. Physical exam (Primary Care) Vital Signs: Last Vital Signs Temp 97.7 F 11/19/24 15:24 Pulse 75 11/19/24 15:24 Resp 12 11/19/24 15:24 BP 128/64 11/19/24 15:24 Pulse Ox 99 11/19/24 15:24 Oxygen Delivery Method Room Air 11/19/24 15:24 BMI result Body Mass Index 22.0 Tobacco/Smoking Status: Tobacco use Status Tobacco use date assessed 11/19/24 11/19/24 15:26 Patient Tobacco Use Status Former Tobacco user 11/19/24 15:26 e-Cigarette/Vaping Use Never Used 11/19/24 15:26 PHQ-9: PHQ-9 Score PHQ-9: Total score 0 11/20/24 13:21 Depression Screening Interpretation: Negative Thrive Assessment: Date of Thrive Assessment Date Thrive assessed 11/12/24 11/19/24 15:20 Currently or been in a relationship where the following occur: I choose not to answer Coding Level of Care Code Est Pt Level 4 (93532) Complex EM visit Add On G2211 Diagnoses Hypothyroidism, unspecified type E03.9 Hypothyroidism type: unspecified Gastroesophageal reflux disease without esophagitis K21.9 Esophagitis presence: without esophagitis Malignant melanoma of left lower extremity including hip C43.72 Laterality: left Melanoma location: lower extremity including hip Sjogren's syndrome, with unspecified organ involvement M35.00 Sjogren organ or system involvement: unspecified organ involvement Osteoarthritis, unspecified osteoarthritis type, unspecified site M19.90 Osteoarthritis location: unspecified site Osteoarthritis type: unspecified Additional Codes PHQ-9 - 17952 - PHQ-9 Billing: Yes ([id number]) Assessment & Plan Assessment & Plan (1) Hypothyroidism: Code(s): E03.9 - Hypothyroidism, unspecified Category: Medical Qualifiers: Hypothyroidism type: unspecified Qualified Code(s): E03.9 - Hypothyroidism, unspecified (2) GERD (gastroesophageal reflux disease): Code(s): K21.9 - Gastro-esophageal reflux disease without esophagitis Category: Medical Qualifiers: Esophagitis presence: without esophagitis Qualified Code(s): K21.9 - Gastro-esophageal reflux disease without esophagitis (3) Malignant melanoma: Code(s): C43.9 - Malignant melanoma of skin, unspecified Category: Medical Qualifiers: Laterality: left Melanoma location: lower extremity including hip Qualified Code(s): C43.72 - Malignant melanoma of left lower limb, including hip (4) Sjogrens syndrome: Code(s): M35.00 - Sjogren syndrome, unspecified Category: Medical Qualifiers: Sjogren organ or system involvement: unspecified organ involvement Koffi lified Code(s): M35.00 - Sjogren syndrome, unspecified (5) Osteoarthritis: Code(s): M19.90 - Unspecified osteoarthritis, unspecified site Category: Medical Qualifiers: Osteoarthritis location: unspecified site Osteoarthritis type: unspecified Qualified Code(s): M19.90 - Unspecified osteoarthritis, unspecified site Plan 79 year old to establish care Past medical, surgical, social reviewed Hypothyroid-stable on levothyroxine Skin cancer-close follow up with dermatology Orders: Orders Complete Blood Count Auto Diff 11/19/24 E03.9 - Hypothyroidism, unspecified, F41.9 - Anxiety disorder, unspecified, K21.9 - Gastro-esophageal reflux disease without esophagitis, Z13.1 - Encounter for screening for diabetes mellitus, Z13.220 - Encounter for screening for lipoid disorders Lipid Panel 11/19/24 E03.9 - Hypothyroidism, unspecified, F41.9 - Anxiety disorder, unspecified, K21.9 - Gastro-esophageal reflux disease without esophagitis, Z13.1 - Encounter for screening for diabetes mellitus, Z13.220 - Encounter for screening for lipoid disorders TSH reflex Free T4 11/19/24 E03.9 - Hypothyroidism, unspecified, F41.9 - Anxiety disorder, unspecified, K21.9 - Gastro-esophageal reflux disease without esophagitis, Z13.1 - Encounter for screening for diabetes mellitus, Z13.220 - Encounter for screening for lipoid disorders Comprehensive Met. Panel 11/19/24 E03.9 - Hypothyroidism, unspecified, F41.9 - Anxiety disorder, unspecified, K21.9 - Gastro-esophageal reflux disease without esophagitis, Z13.1 - Encounter for screening for diabetes mellitus, Z13.220 - Encounter for screening for lipoid disorders Pathologist Review - CBC 11/19/24 E03.9 - Hypothyroidism, unspecified, F41.9 - Anxiety disorder, unspecified, K21.9 - Gastro-esophageal reflux disease without esophagitis, Z13.1 - Encounter for screening for diabetes mellitus, Z13.220 - Encounter for screening for lipoid disorders Rheumatoid Factor 11/19/24 M19.90 - Unspecified osteoarthritis, unspecified site Medications: Refilled levothyroxine 100 mcg PO QAM 90 tabs 3RF 90 days E03.9 - Hypothyroidism, unspecified
[2024-11-19 15:24] VITALS: BP 128/64; PULSE 75; RESP 12; TEMP 36.5; O2SAT 99; BMI 22.0
--- OUTSIDE RECORDS SUMMARY | 2024-11-19 16:24 | XMS_ITS | Clinical Summary ---
Author Organization [facility] Address [address] [facility] [address] [place] [phone] Phone Care Team Providers Care Burlapper Name Role Phone Layton Etienne MD Unavailable [phone] Luis Huffman DMD, MD Unavailable [phone] Self-Referred, Patient Unavailable Unavailab Kannan Chamberlain Unavailable [phone] Kannan Lancaster Primary Care Provider + Allergies Active Allergy Reactions Criticality Noted Date Comments Pollen Extracts 04/12/2021 Sulfa (Sulfonamide Antibiotics) Rash Low 03/2022 Medications cycloSPORINE (RESTASIS) 0.05 % suspension Place 1 drop into each eye 2 (two) times a day. Active cevimeline (EVOXAC) 30 mg capsule Take 30 mg by mouth 2 (two) times a day (once in the morning and once in the afternoon). Active levothyroxine (SYNTHROID, LEVOTHROID) 100 MCG tablet Take 100 mcg by mouth every morning. Active hydroxychloroq uine (PLAQUENIL) 200 mg capsule Take by mouth 3 (three) times a week. Active ascorbic acid, vitamin C, (VITAMIN C) 500 MG tablet Take 500 mg by mouth daily. Active cyanocobalamin , vitamin B-12, 2,[address] 5,000 mcg under the tongue daily. Active ashwagandha root extract 300 mg Cap Take 900 mg by mouth. Active zinc 50 mg Tab tablet Take 50 mg by mouth daily. Active cholecalcifero l (VITAMIN D3) 400 unit tablet Take 400 Units by mouth daily. Active quercetin dihydrate, bulk, 100 % Powd by Miscellaneous route. Active milk thistle seed extract 200 mg Cap Take by mouth. Acti ve vitamin A,C & D-inkkwq-nubvn als (OCUVITE) 1,000 unit-200 mg-60 unit-2 mg Tab Take 1 tablet by mouth daily. Active bacillus coagulans-inul in 1 billion-250 cell-mg Cap Take 250 mg by mouth daily. Active Active Problems Problem Noted Date Diagnosed Date Graves disease 04/14/2021 Family History Medical History Relation Comments Macular degeneration Father Breast cancer Maternal Grandmother Macular degeneration Mother Breast cancer Paternal Grandmother Gallbladder disease Sister Relation Status Comments Father Maternal Grandmother Mother Paternal Grandmother Sister Social History Tobacco Use Types Packs/Day Years Used Date Smoking Tobacco: Never Smokeless Tobacco: Never Tobacco Cessation:Counseling Given: Not Answered Child or Family Care Answer Date Record ed Do you have problems with on e of the following making it difficult for you to work, study, or receive health care? I choose not to answer 03/21/2023 Education Answer Date Recorded Are you interested in more education? Not on vicente e 07/18/2022 Are you concerned about learning? Not on file 07/18/2022 No 07/18/2022 No 07/18/2022 Food Answer Date Recorded Within the past 6 months we worried whether our food would run out before we got money to buy more. I choose not to answer 03/21/2023 Within the past 6 months the food we bought just didn't last and we didn't have enough money to get more. I choose not to answer 03/21/2023 Residential Stability Answer Date Recor ded What is your housing situation today? I choose n ot to answer 03/21/2023 How many times have you move d in the past 12 months? I choose not to answer 03/21/2023 Paying for Meds Answer Date Recorded Do you have trouble paying for medicines? I emily se not to answer 03/21/2023 Paying Utility Bills Answer Date Record ed Do you have trouble paying y our heating or electricity bill? I choose not to answer 03/21/2023 Transportation Answer Date Recorded Has the lack of transportati on kept you from medical appointments or from getting medications? I choose not to answer 03/21/2023 Digital Access Answer Date Recorded No 08/14/2022 No 08/14/2022 Reliable internet access at home? Not on file 08/14/2022 Device with a working camera? Not on file Comments No Sex and Gender Information Value Date Recorded Sex Assigned at Female 11/02/2020 9:39 AM EDT Legal Sex Female 5:08 PM EST Gender Identity Female 11/02/2020 9:39 AM EDT Sexual Orientation Straight 11/02/2020 9: 39 AM EDT Last Filed Vital Signs Vital Sign Reading Time Taken Comments Blood Pressure 128/60 03/08/2024 2:42 PM EST Pulse 66 03/08/2024 2:42 PM EST Temperature 36.3 C (97.4 F) 03/08/2024 2:42 PM EST Respiratory Rate 16 03/08/2024 2:40 PM EST Oxygen Saturation 98% 03/08/2024 2:42 PM EST Inhaled Oxygen Concentration - - Weight 64.2 kg (141 lb 8.6 oz) 03/08/2024 2:40 P M EST Height 166.2 cm (5' 5.43 ) 03/08/2024 2:40 PM ES T Body Mass Index 23.24 03/08/2024 2:40 PM EST Plan of Treatment Upcoming Encounters Date Type Department Care Team (Late st Contact Info) Description 03/14/2025 1:40 PM EST [facility] [address] [place] [address], [address] [place] [address] Leola Schreiber MD [address] [place] [phone] [email or web address] Health Maintenance Due Date Last Done Comments Adult Td,Tdap Booster 1945 LIPID PANEL 1947 DEPRESSION SCREENING 1959 HEPATITIS C SCREENING 10/27/1965 ZOSTER VACCINES (2 of 2) 04/01/2020 02/05/2020 PNEUMOCOCCAL VACCINES (50+ years) (2 of 2 - PCV) 03/23/2021 03/23/2020 RSV VACCINE (1 - 1-dose 75+ series) 10/27/2022 TSH LEVEL 03/25/2023 03/25/2022 COVID-19 VACCINE (3 - 2023-2 5 season) 2023 07/05/2020, 06/13/2020 OSTEOPOROSIS SCREENING INITI AL (ONE-TIME) Completed 08/24/2022 SMOKING STATUS SCREENING (On ce After 26 Yrs) Completed 03/22/2023 HEPATITIS A VACCINES Aged Out No long er eligible based on patient's age to complete this topic HIB VACCINES Aged Out No longer eligi ble based on patient's age to complete this topic MENINGOCOCCAL VACCINES (ACWY) Aged Out No longer eligible based on patient's age to complete this topic MENINGOCOCCAL VACCINES (B) Aged Out N o longer eligible based on patient's age to complete this topic Medical Devices Not on file Procedures Procedure Name Priority Date/Time Associated Diagnosis Comments BD DXA AXIAL (SPINE) WITH HIP Routine 08/24/2022 10:18 AM EDT Post-menopausal TSH WITH REFLEX Routine 03/25/2022 10:41 AM EST Graves disease from Last 3 Months or Most Recently Relevant to Health Maintenance Results * BD DXA AXIAL (SPINE) WITH HIP (08/24/2022 10:18 AM EDT) Anatomical Region Laterality Modality Bone Density Bone Density 08/24/2022 10:1 0 AM EDT Impressions 08/24/2022 3:43 PM EDT Interpretation: Osteopenia. Narrative 08/24/2022 3:43 PM EDT Referred By: LAYTON ETIENNE Scanner: Hip[employer] W with serial# of [id number] located at [facility] Bone Density Scan (DXA) 08/24/22 Details of prior DXA scans are available by clicking View Image BMD T- Z- Skeletal Site gm/cm2 score score BMD Change Since Prior Scan ------ ----- ----- PA Spine (L1-L4) 0.915 -1.20 1.20 N/A Total Hip (Left) 0.897 -0.40 1.40 N/A Femoral Neck (Left) 0.786 -0.60 1.50 N/A ------ ----- ----- * Denotes significant change when >= 0.022 g/cm2 for the spine, 0.027 g/cm2 for the total hip, 0.029 g/cm2 for the femoral neck. Interpretation: Osteopenia. Technical Quality: Imaging of all sites was of adequate quality. FRAX: Based on FRAX(r) 3.6 ([place] White female), this patient's likelihood of hip fracture is 1.3% and major osteoporotic fracture is 12% over the next 10 years. The patient reported the following risks of fracture on a questionnaire: previous fracture as an adult. Additional Information: -World Health Organization criteria classify adults based on lowest T-score at PA spine, hip or forearm: Normal (T-score >= -1.0), Osteopenia (T-score between -1 and -2.5), or Osteoporosis (T-score <= -2.5). T-scores are compared to peak bone density of a gender and ethnicity matched reference population. -For premenopausal women and men under the age of 50, Z-scores (comparison to age, gender, and ethnicity matched reference population) are used: Above expected range for age (Z-score >= 2.0), Within expected range of age (Z-score 1.9 to -1.9), or Below expected range for age (Z-score <= -2.0). -The National Osteoporosis Foundation recommends that treatment be considered in men aged more than 50 years and in postmenopausal women with ANY of the following: Prior hip or vertebral fractures; T-score of <= -2.5 at the PA spine or hip; or 10 year fracture probability by FRAX of >= 3% for the hip or >= 20% for major osteoporotic fracture. -The FRAX algorithm (https://www.monserrat.ac.uk/FRAX/tool.aspx) is designed to predict 10-year fracture risk in treatment-naive adults between the ages of 40 and 90. It is not intended to be used in those receiving pharmacologic osteoporosis treatment. -Including race/ethnicity in the generation of T- or Z-scores or in the FRAX calculation is complicated, with there being reasons for and against doing such. We and others are actively reviewing the best approach to ensure that we can give patients the best information on their risk of fracture. -Click on View Image to see subsequent pages with images and prior bone density results. Reviewed By: John Montelongo MD on 08/24/2022 15:43:57 Procedure Note John Hudson MD - 08/24/2022 Referred By: LAYTON ETIENNE Scanner: [employer] W with serial# of [id number] located at [facility] Bone Density Scan (DXA) 08/24/22 Details of prior DXA scans are available by clicking View Image BMD T- Z- Skeletal Site gm/cm2 score score BMD Change Since Prior Scan ------ ----- PA Spine (L1-L4) 0.915 -1.20 1.20 N/A Total Hip (Left) 0.897 -0.40 1.40 N/A Femoral Neck (Left) 0.786 -0.60 1.50 N/A ------ ----- * Denotes significant change when >= 0.022 g/cm2 for the spine, 0.027g/cm2 for the total hip, 0.029 g/cm2 for the femoral neck. Interpretation: Osteopenia. Technical Quality: Imaging of all sites was of adequate quality. FRAX: Based on FRAX(r) 3.6 ([place] White female), this patient's likelihoodof hip fracture is 1.3% and major osteoporotic fracture is 12% over the next10 years. The patient reported the following risks of fracture on a questionnaire: previous fracture as an adult. Additional Information: -World Health Organization criteria classify adults based on lowestT-score at PA spine, hip or forearm: Normal (T-score >= -1.0), Osteopenia (T-score between -1 and -2.5), or Osteoporosis (T-score <= -2.5). T-scores are compared to peak bone density of a gender and ethnicity matched reference population. -For premenopausal women and men under the age of 50, Z-scores (comparison to age, gender, and ethnicity matched reference population) are used:Above expected range for age (Z-score >= 2.0), Within expected range of age (Z-score 1.9 to -1.9), or Below expected range for age (Z-score <= -2.0). -The National Osteoporosis Foundation recommends that treatment be considered in men aged more than 50 years and in postmenopausal women with ANY of the following: Prior hip or vertebral fractures; T-score of <= -2.5 at the PA spine or hip; or 10 year fracture probability by FRAX of >= 3%for the hip or >= 20% for major osteoporotic fracture. -The FRAX algorithm (https://www.monserrat.ac.uk/FRAX/tool.aspx) isdesigned to predict 10-year fracture risk in treatment-naive adults between theages of 40 and 90. It is not intended to be used in those receivingpharmacologic osteoporosis treatment. -Including race/ethnicity in the generation of T- or Z-scores or in theFRAX calculation is complicated, with there being reasons for and against doing such. We and others are actively reviewing the best approach to ensurethat we can give patients the best information on their risk of fracture. -Click on View Image to see subsequent pages with images and prior bone density results. Reviewed By: John Montelongo MD on 08/24/2022 15:43:57 IMPRESSION: Interpretation: Osteopenia. Layton Etienne MD IMG BD BONE DENSITY DEXA Fin al Result * TSH with reflex (03/25/2022 10:41 AM EST) SCREENING PANEL: TSH 1.79 0.40 - 5.00 uIU/mL [facility] 03/25/2022 10:4 1 AM EST 03/25/2022 11:27 AM EST Layton Etienne MD LAB BLOOD ORDERABLES Final R esult [address] [address] from Last 3 Months or Most Recently Relevant to Health Maintenance Insurance [place] [id number] [facility] EXTENSION MEDICARE SUPPLEMENT MEDICARE PART A & B [employer] MEDICARE SUPPLEMENT MEDICARE PART A & B [employer] MEDICARE SUPPLEMENT MEDICARE PART A & B MEDICARE SUPPLEMENT MEDICARE PART A & B [facility] EXTENSION MEDICARE SUPPLEMENT MEDICARE PART A & B [facility] EXTENSION MEDICARE SUPPLEMENT MEDICARE PART A & B [facility] MEDICARE SUPPLEMENT MEDICARE PART A & B [facility] MEDICARE SUPPLEMENT MEDICARE PART A & B [facility] [employer]ION MEDICARE SUPPLEMENT Care Teams Burlapper Relationship Specialty Start Date End Date Kannan Lancaster PA [address] [place] [address] PCP - General Physician Fish Trapper 03/07/24 Layton Etienne MD [address] [place] [id number] [email or web address] Rheumatology 03/29/22 Luis Huffman DMD, MD [address] [place] [phone] [email or web address] manager surgical 03/29/22 Self-Referred, Patient 01/03/23 Kannan Lancaster PA [address] [place] [address] Physician Fish Trapper 03/07/[address] [facility] Primary Care Physician Internal Medicine 03/07/24 Additional Source Comments The information contained in this document represents components of the legal health record. It is not the complete legal health record.[facility]
== END 2024-11-19 15:54 | disposition home or self-care (01) ==
LOC: HO.HMCFM 15:17
PROVIDERS: PCP Internal Medicine; Visit Provider Internal Medicine
DX: E03.9 Hypothyroidism, unspecified (principal); K21.9 Gastro-esophageal reflux disease without esophagitis; C43.72 Malignant melanoma of left lower limb, including hip; M35.00 Sjogren syndrome, unspecified; M19.90 Unspecified osteoarthritis, unspecified site

== ENCOUNTER → 2024-11-19 15:17 | Outpatient (BNVA) | payer MEDICARE, OTHER, SELFPAY | PROVIDERS: PCP Physician Assistant; Visit Provider Internal Medicine | DX: Z76.89 Persons encountering health services in other specified circumstances (principal); E03.9 Hypothyroidism, unspecified; K21.9 Gastro-esophageal reflux disease without esophagitis; C43.72 Malignant melanoma of left lower limb, including hip; M35.00 Sjogren syndrome, unspecified; M19.90 Unspecified osteoarthritis, unspecified site; Z79.899 Other long term (current) drug therapy; Z13.31 Encounter for screening for depression | CPT/HCPCS: 96127; 99212 ==

== ENCOUNTER 2025-03-03 08:49 | Outpatient (REF) | payer MEDICARE, OTHER, SELFPAY ==
[2025-03-03 11:06] LABS: MANUAL DIFF FLAG NO
[2025-03-03 11:23] LABS: Hematocrit 41.4 % (37.0-47.0); Hemoglobin 13.5 g/dl (12.0-16.0); Imm Gran Abs Auto 0.01 X10*3/uL (0.00-0.03); Imm Gran Pct Auto 0.2 % (0.0-0.4); Lymphocytes Absolute Auto 1.3 X10*3/uL (1.2-4.9); Mean Corpuscular HGB Conc 32.6 g/dl (31.0-35.0); Mean Corpuscular Hemoglobin 30.9 pg (27.0-33.0); Mean Corpuscular Volume 94.7 fL (80.0-98.0); NRBC Abs Auto 0.000 X10*3/uL (0.0-0.012); NRBC Pct Auto 0.0 /100WBC (0.0-0.2); Platelet Count 190 X10*3/uL (160-400); Red Blood Count 4.37 X10*6/uL (4.20-5.50); White Blood Count 4.0 X10*3/uL (4.8-10.8)
[2025-03-03 11:51] LABS: Alanine Aminotransferase 20 U/L (0-31); Albumin Level 3.9 g/dL (3.5-5.0); Alkaline Phosphatase 59 U/L (39-117); Anion Gap 9 (12-20); Aspartate Amino Transferase 24 U/L (5-31); Blood Urea Nitrogen 15 mg/dL (9-16); Calcium 9.4 mg/dL (8.4-10.2); Carbon Dioxide 28 mmol/L (22-29); Chloride 110 mmol/L (96-108); Cholesterol 194 mg/dL (<200); Estimated Glomerular Filt Rate > 60; HDL Cholesterol 68 mg/dL (>40); Potassium 4.5 mmol/L (3.3-5.1); Sodium 142 mmol/L (135-145); Total Protein 6.5 g/dL (6.5-8.0); Triglycerides 71 mg/dL (<150)
== END 2025-03-03 08:50 | disposition home or self-care (01) ==
LOC: HO.WFDLDS 08:49
PROVIDERS: Visit Provider Internal Medicine
DX: Z13.1 Encounter for screening for diabetes mellitus (principal); E03.9 Hypothyroidism, unspecified; Z13.220 Encounter for screening for lipoid disorders; K21.9 Gastro-esophageal reflux disease without esophagitis; F41.9 Anxiety disorder, unspecified; M19.90 Unspecified osteoarthritis, unspecified site
CPT/HCPCS: 80053; 80061; 84443; 85025; 86431

== ENCOUNTER 2025-03-03 10:30 | Outpatient (RCR) | payer MEDICARE, OTHER, SELFPAY | END 2025-03-14 16:43 | disposition home or self-care (01) | LOC: HO.WCC 10:30 | PROVIDERS: PCP Internal Medicine; Visit Provider Surgery Surgical Oncology | DX: Z85.820 Personal history of malignant melanoma of skin (principal); Y83.8 Other surgical procedures as the cause of abnormal reaction of the patient, or of later complication, without mention of misadventure at the time of the procedure; Z87.891 Personal history of nicotine dependence | CPT/HCPCS: 97597; 99212; 99213 ==